=== PATIENT | male | born 1965 | race Caucasian/White ===

== ENCOUNTER 2017-04-14 19:34 | Emergency (ER) | payer BC, MEDICAID ==
[~2017-04-14] VITALS: Ht 175.3 cm; Wt 131.5 kg
[~2017-04-14 19:34] MED LIST: ASPI-1063; LOSA1TAB3; METO50TA7; NIFE90TA58; ROSU10TA
[2017-04-14 19:38] VITALS: BP_SYST 156
[2017-04-14] MEDS ORDERED: HYDROcodone/ACETAMIN 10-325 MG TAB PO ONE (20:15)
[2017-04-14] MEDS ORDERED: DIPH-TET-PERTUS Vaccine 0.5 ML VIAL (ADACEL) IM ONE (20:15)
[2017-04-14] MEDS ORDERED: LIDOCAINE 2%, 20 ML MDV IJ ONE (20:15)
[2017-04-14] MEDS ORDERED: LIDOCAINE 2%, 20 ML MDV ONE (20:22)
[2017-04-14] MEDS ORDERED: BACITRACIN 1 GM OINT TP ONE (21:15)
[2017-04-14 21:59] VITALS: BP_SYST 156
== END 2017-04-14 21:59 | disposition home or self-care (01) ==
LOC: SED 19:34
DX: S61.011A Laceration without foreign body of right thumb without damage to nail, initial encounter (principal); E78.00 Pure hypercholesterolemia, unspecified; I10 Essential (primary) hypertension; Z88.0 Allergy status to penicillin; W26.8XXA Contact with other sharp object(s), not elsewhere classified, initial encounter; Y93.89 Activity, other specified; Y92.89 Other specified places as the place of occurrence of the external cause; Y99.8 Other external cause status
CPT/HCPCS: 12002; 73140; 90471; 90715; 99284; J2001

== ENCOUNTER 2022-11-19 21:52 | Inpatient (IN) | payer OTHER, MEDICAID ==
[~2022-11-19] VITALS: Ht 175.3 cm; Wt 142.4 kg
[~2022-11-19 21:52] MED LIST changes: -ASPI-1063; +ASPI-1393; +NIFE90TA; -NIFE90TA58; -ROSU10TA; +ROSU10TA2
[2022-11-19 22:08] VITALS: BP_SYST 141
[2022-11-19] MEDS ORDERED: ASPIRIN 81 MG TAB.CHEW PO ONE (22:45)
[2022-11-19] MEDS ORDERED: NITROGLYCERIN 0.4 MG TAB.SUBL SL ONE (22:45)
[2022-11-19 23:56] LABS: BASOPHILS % (AUTO) 0.3 % (0.0-2.0); EOSINOPHILS # (AUTO) 0.2 K/uL (0.0-0.4); EOSINOPHILS % (AUTO) 1.2 % (0.0-4.0); HEMOGLOBIN 15.5 g/dL (14.0-18.0); LYMPHOCYTES # (AUTO) 1.5 K/uL (1.0-5.5); LYMPHOCYTES % (AUTO) 10.3 % (20.5-51.5); MEAN CORPUSCULAR HEMOGLOBIN 30 pg (27-31); MEAN CORPUSCULAR HGB CONC 34 % (32-36); MEAN CORPUSCULAR VOLUME 89 fL (79.0-98.0); MONOCYTES # (AUTO) 0.8 K/uL (0.0-1.0); MONOCYTES % (AUTO) 5.6 % (1.7-9.3); NEUTROPHILS # (AUTO) 11.8 K/uL (1.8-7.7); NEUTROPHILS % (AUTO) 82.6 % (40.0-70.0); PLATELET COUNT (AUTO) 270 K/uL (130-430); RED BLOOD CELL COUNT(AUTO) 5.17 MIL/uL (4.2-6.2); RED CELL DISTRIBUTION WIDTH 13.6 % (9.0-15.0); WHITE BLOOD COUNT (AUTO) 14.3 K/uL (4.8-10.8)
[2022-11-20 00:42] LABS: ALANINE AMINOTRANSFERASE 3 U/L (12-78); ALBUMIN 3.9 g/dL (3.4-4.8); ANION GAP 10 (5-15); ASPARTATE AMINOTRANSFERASE 20 U/L (10-37); CALCIUM 8.1 mg/dL (8.4-11.0); CHLORIDE 101 mmol/L (98-107); CREATININE 0.95 mg/dL (0.55-1.30); GFR AFRICAN AMERICAN 105 mL/min (>90); GLUCOSE 121 mg/dL (70-99); TOTAL BILIRUBIN 0.6 mg/dL (0.0-1.0); UREA NITROGEN, BLOOD 15 mg/dL (8-21)
[2022-11-20] MEDS ORDERED: KCL 20 mEq in 100 mL (PREMIX) 100 ML IV ONE (01:00)
[2022-11-20] MEDS ORDERED: POTASSIUM CHLORIDE 20 MEQ/PKT PACKET PO ONE (01:00)
[2022-11-20] MEDS ORDERED: HEPARIN 25,000 UNITS/D5W 250ML 250 ML IV ONE ×2 (02:00→02:15)
[2022-11-20] MEDS ORDERED: ACETAMINOPHEN 325 MG TABLET PO ONE (02:15)
[2022-11-20 03:12] VITALS: BP_SYST 142
[2022-11-20 03:38] LABS: PROTHROMBIN TIME 10.6 SECS (9.5-12.5)
[2022-11-20] MEDS ORDERED: NITROGLYCERIN 0.4 MG TAB.SUBL SL PRN (04:15)
[2022-11-20] MEDS ORDERED: HEPARIN SODIUM,PORCINE 2000 UNITS/0.4 ML BOLUS IVP PRN (04:30)
[2022-11-20] MEDS ORDERED: HEPARIN 25,000 UNITS in 250 ML PREMIX IV PRN (04:30)
[2022-11-20] MEDS ORDERED: HEPARIN SODIUM,PORCINE 3000 UNITS/0.6 ML BOLUS IVP PRN (04:30)
[2022-11-20] MEDS ORDERED: *HEPARIN PER PHARMACY XX PRN (04:30)
[2022-11-20] MEDS ORDERED: HEPARIN SODIUM,PORCINE 5,000 UNITS/ML VIAL SUBCUT ONE (04:45)
[2022-11-20] MEDS ORDERED: HEPARIN SODIUM,PORCINE 5,000 UNITS/ML VIAL IV ONE (05:00)
[2022-11-20] MEDS ORDERED: *LOVENOX 1MG/KG Q12H/PHARMACY XX PRN (08:15)
[2022-11-20 08:44] VITALS: BP_SYST 141
[2022-11-20] MEDS ORDERED: LOSARTAN/HYDROCHLOROTHIAZIDE TAB (HYZAAR 50-12.5 MG) PO SCH (09:00)
[2022-11-20] MEDS: LOSARTAN POTASSIUM 50 MG TABLET (COZAAR) PO SCH (09:48)
[2022-11-20] MEDS: ATORVASTATIN 20 MG TABLET PO SCH (09:48)
[2022-11-20] MEDS: METOPROLOL SUCCINATE 50 MG TAB.SR.24H (TOPROL XL) PO SCH (09:49)
[2022-11-20] MEDS: ASPIRIN 81 MG TABLET(ECOTRIN) PO SCH (09:49)
[2022-11-20] MEDS: NIFEdipine 30 MG TAB.ER.24 PO SCH (09:50)
[2022-11-20] MEDS: ENOXAPARIN SODIUM 100 MG, ENOXAPARIN SODIUM 40 MG SUBCUT SCH ×4 (09:50→21:00)
[2022-11-20 10:11] LABS: BASOPHILS % (AUTO) 0.4 % (0.0-2.0); EOSINOPHILS # (AUTO) 0.2 K/uL (0.0-0.4); EOSINOPHILS % (AUTO) 2.1 % (0.0-4.0); HEMATOCRIT 46.4 % (36-54); HEMOGLOBIN 15.8 g/dL (14.0-18.0); LYMPHOCYTES # (AUTO) 1.9 K/uL (1.0-5.5); LYMPHOCYTES % (AUTO) 18.8 % (20.5-51.5); MEAN CORPUSCULAR HEMOGLOBIN 30 pg (27-31); MEAN CORPUSCULAR HGB CONC 34 % (32-36); MEAN CORPUSCULAR VOLUME 88 fL (79.0-98.0); MONOCYTES # (AUTO) 0.6 K/uL (0.0-1.0); MONOCYTES % (AUTO) 6.3 % (1.7-9.3); NEUTROPHILS # (AUTO) 7.4 K/uL (1.8-7.7); NEUTROPHILS % (AUTO) 72.4 % (40.0-70.0); PLATELET COUNT (AUTO) 276 K/uL (130-430); RED BLOOD CELL COUNT(AUTO) 5.27 MIL/uL (4.2-6.2); RED CELL DISTRIBUTION WIDTH 13.9 % (9.0-15.0); WHITE BLOOD COUNT (AUTO) 10.2 K/uL (4.8-10.8)
[2022-11-20 10:37] LABS: CALCIUM 8.3 mg/dL (8.4-11.0); CREATININE 0.89 mg/dL (0.55-1.30)
[2022-11-20] MEDS ORDERED: POTASSIUM CHLORIDE 20 MEQ TAB.PRT.SR PO ONE ×2 (11:15→15:15)
[2022-11-20 11:34] VITALS: BP_SYST 132
[2022-11-20 20:00] VITALS: BP_SYST 135
[2022-11-21] VITALS: BP_SYST 123
[2022-11-21 01:37] VITALS: BP_SYST 123
[2022-11-21 02:54] LABS: ALBUMIN 3.7 g/dL (3.4-4.8); CALCIUM 8.1 mg/dL (8.4-11.0); CREATININE 0.9 mg/dL (0.55-1.30); TOTAL BILIRUBIN 0.8 mg/dL (0.0-1.0)
[2022-11-21 03:07] LABS: BASOPHILS # (AUTO) 0.1 K/uL (0.0-0.2); BASOPHILS % (AUTO) 0.7 % (0.0-2.0); EOSINOPHILS # (AUTO) 0.3 K/uL (0.0-0.4); EOSINOPHILS % (AUTO) 2.9 % (0.0-4.0); HEMATOCRIT 47.2 % (36-54); LYMPHOCYTES # (AUTO) 2.6 K/uL (1.0-5.5); LYMPHOCYTES % (AUTO) 24.5 % (20.5-51.5); MEAN CORPUSCULAR HEMOGLOBIN 30 pg (27-31); MEAN CORPUSCULAR HGB CONC 34 % (32-36); MEAN CORPUSCULAR VOLUME 89 fL (79.0-98.0); MONOCYTES # (AUTO) 0.9 K/uL (0.0-1.0); MONOCYTES % (AUTO) 8.5 % (1.7-9.3); NEUTROPHILS # (AUTO) 6.6 K/uL (1.8-7.7); NEUTROPHILS % (AUTO) 63.4 % (40.0-70.0); PLATELET COUNT (AUTO) 270 K/uL (130-430); RED BLOOD CELL COUNT(AUTO) 5.33 MIL/uL (4.2-6.2); RED CELL DISTRIBUTION WIDTH 13.6 % (9.0-15.0); WHITE BLOOD COUNT (AUTO) 10.4 K/uL (4.8-10.8)
[2022-11-21 08:33] VITALS: BP_SYST 140
[2022-11-21] MEDS: ASPIRIN 81 MG TABLET(ECOTRIN) PO SCH (09:00)
[2022-11-21] MEDS: ENOXAPARIN SODIUM 100 MG, ENOXAPARIN SODIUM 40 MG SUBCUT SCH ×4 (09:00→21:00)
[2022-11-21] MEDS: ATORVASTATIN 20 MG TABLET PO SCH (09:00)
[2022-11-21] MEDS: LOSARTAN POTASSIUM 50 MG TABLET (COZAAR) PO SCH (09:00)
[2022-11-21] MEDS: NIFEdipine 30 MG TAB.ER.24 PO SCH (09:00)
[2022-11-21] MEDS: METOPROLOL SUCCINATE 50 MG TAB.SR.24H (TOPROL XL) PO SCH (09:00)
[2022-11-21] MEDS ORDERED: POTASSIUM CHLORIDE 20 MEQ TAB.PRT.SR PO ONE (09:45)
[2022-11-21 11:59] VITALS: BP_SYST 135
[2022-11-21 16:10] VITALS: BP_SYST 139
[2022-11-21] MEDS: NACL 0.9% 1,000 ML IV SCH (19:10)
[2022-11-21 20:10] VITALS: BP_SYST 138
[2022-11-22 00:10] VITALS: BP_SYST 140
[2022-11-22] MEDS: NACL 0.9% 1,000 ML IV SCH ×2 (06:31→15:09)
[2022-11-22 08:00] VITALS: BP_SYST 133
[2022-11-22] MEDS: LOSARTAN POTASSIUM 50 MG TABLET (COZAAR) PO SCH (09:05)
[2022-11-22] MEDS: ASPIRIN 81 MG TABLET(ECOTRIN) PO SCH (09:06)
[2022-11-22] MEDS: ATORVASTATIN 20 MG TABLET PO SCH (09:06)
[2022-11-22] MEDS: METOPROLOL SUCCINATE 50 MG TAB.SR.24H (TOPROL XL) PO SCH (09:06)
[2022-11-22] MEDS: NIFEdipine 30 MG TAB.ER.24 PO SCH (09:06)
[2022-11-22] MEDS: ENOXAPARIN SODIUM 100 MG, ENOXAPARIN SODIUM 40 MG SUBCUT SCH ×4 (09:58→22:02)
[2022-11-22 12:10] VITALS: BP_SYST 157
[2022-11-22 16:00] VITALS: BP_SYST 139
[2022-11-22 20:00] VITALS: BP_SYST 130
[2022-11-22 23:42] VITALS: BP_SYST 114
[2022-11-23 00:10] VITALS: BP_SYST 114
[2022-11-23] MEDS: NACL 0.9% 1,000 ML IV SCH (00:37)
[2022-11-23 08:30] VITALS: BP_SYST 140
[2022-11-23 11:49] VITALS: BP_SYST 131
== END 2022-11-23 12:05 | disposition short-term general hospital (02) | DRG 281 ==
LOC: SED 21:52 → STU 11-20 02:11
PROVIDERS: ADMIT Family Medicine; ATTEND Family Medicine
DX: I21.4 Non-ST elevation (NSTEMI) myocardial infarction (principal); Z68.42 Body mass index [BMI] 45.0-49.9, adult; E78.00 Pure hypercholesterolemia, unspecified; I10 Essential (primary) hypertension; E66.01 Morbid (severe) obesity due to excess calories; Z20.822 Contact with and (suspected) exposure to COVID-19; Z88.0 Allergy status to penicillin; Z79.82 Long term (current) use of aspirin; Z79.899 Other long term (current) drug therapy; Z87.891 Personal history of nicotine dependence
CPT/HCPCS: 36415; 71045; 80048; 80053; 80061; 83690; 83735; 83880; 84484; 85025; 85610-TC; 85730-TC; 93005; 93306; 96360; 99291; G0378; J1644; J1650; J3480; J7030; U0003